=== PATIENT | male | born 1965 | race Two or more races ===

== ENCOUNTER → 2016-09-16 | Day surgery (SDC) | payer MEDICAID ==
[2016-06-29 13:31] VITALS: BMI 23.2
[~2016-09-16] MED LIST: BUPIVACAINE 0.25% 30 ML VIAL ONE; CEFAZOLIN 1 GM VIAL ONE; FENTANYL 100 MCG/2 ML VIAL IV ONE; FENTANYL 100 MCG/2 ML VIAL IV PRN; GLYCOPYRROLATE 1 MG VIAL IM ONE; HYDROmorphone 1 MG INJECTION IV PRN; ISOVUE-300 (61%) 50 ML ONE; KETAMINE 50 MG/ML SYRINGE IV ONE; KETOROLAC TROMETH 30 MG/ML VIAL IM ONE; LABETALOL 20 MG/4 ML SYRINGE IV PRN; LIDOCAINE 100 MG PFS IV ONE; MEPERIDINE 25 MG/ML TUBEX IV PRN; MIDAZOLAM 2 MG/2 ML VIAL IV ONE; NEOSTIGMINE 1 MG/1 ML (1:1000) INJ 10 ML MDV IM ONE; ONDANSETRON HCL 4 MG ODT TAB PO PRN; ONDANSETRON HCL 4 MG/2 ML VIAL IV ONE; ONDANSETRON HCL 4 MG/2 ML VIAL IV PRN; OXYCODONE HCL 5 MG TABLET ONE; PROPOFOL 200 MG/20 ML VIAL IV ONE; ROCURONIUM 50 MG/5 ML VIAL IV ONE; hydrALAZINE 20 MG/ML VIAL IV PRN
--- NOTE | 2016-09-16 07:10 | HIM.ANES ---
Anesthesia Evaluation & Plan Diagnoses: CHRONIC CHOLECYSTITIS (09/16/16) NAUSEA (09/16/16) Consented Procedure: LAPAROSCOPIC CHOLECYSTECTOMY WITH INTRAOPERATIVE CHOLANGIOGRAM - Focused Review of Systems Cardiac History: No: Hx Hypertension, Hx Cardiac Disorders HEENT: Yes: Hx Hearing Impairment (HARD OF HEARING LEFT), Cataracts, Hx Vision Problem (RIGHT EYE), Other HEENT Problems Hx Other HEENT Problems: SINUS, ALLERGIES Respiratory: Yes: Hx Asthma (CHILDHOOD), Hx Chronic Obstructive Pulmonary Disease (COPD) (chronic bronchitis) Gastrointestinal: Yes: Hx Gastroesophageal Reflux Disease (sometimes), Hx Diverticulitis, Hx Diverticulosis Neurological/Musculoskeletal: No: HX Cerebrovascular Accident, Hx Neurological Disorders Psychological: No Hx Mental/Emotional Disorders Blood/Autoimmune: No: Hx Blood Transfusions, Hx AIDS, Hx Hepatitis (type) Smoking Status: Never smoker Other Surgical History: CIRCUMCISION - Focused Physical Exam NPO since: 09/15/162099 Mallampati: Class I Thyromental Distance: Greater than 3 Neck: Full Range of Motion Dental: Normal - no significant findings Cardiovascular/Chest: Normal Respiratory: Lungs clear Any problems with anesthesia, including nausea and vomiting?: No Any relatives with a history of Malignant Hyperthermia?: No Does patient have a history of Malignant Hyperthermia?: No Beta Iris given (if appropriate): N/A Does the patient have a history of Motion Sickness-: No Other: Allergies Allergy/AdvReac Type Severity Reaction Status Date / Time peanuts Allergy See Uncoded 09/16/16 06:41 Comments Home Medications Medication Instructions Recorded Last Taken Type Loratadine [Claritin] 10 mg PO DAILY 06/28/16 09/15/16 History Prednisone 5 mg PO DAILY 06/28/16 09/15/16 History Albuterol Sulfate [Proair Hfa] 2 puff INH Q4H PRN 09/16/16 09/16/16 04:00 History Folic Acid 1 mg PO DAILY 09/16/16 09/14/16 History Methotrexate Sodium [Methotrexate] 6 tab PO .QWEDNESDAY 09/16/16 09/14/16 History Height and Weight Patient's height 5 ft 3 in Patient's weight 63.503 kg BMI 23.2 Vital Signs Temperature 98.3 F 09/16/16 06:46 Pulse Rate 76 09/16/16 06:46 Respiratory Rate 18 09/16/16 06:46 Blood Pressure 117/84 09/16/16 06:46 Pulse Oxygen Saturation 96 09/16/16 06:46 METS - Level of Activity: Climbing stairs(1 flight),walking level ground, running short distance - Anesthetic Plan Anesthesia Type: General ASA Class: 2 -: I have examined this patient and reviewed the medical record. The patient has been assessed prior to anesthesia. Risks and benefits of anesthesia and anesthetic technique options have been discussed and all questions answered. The patient accepts the risk and desires me to proceed with the planned anesthetic.
--- NOTE | 2016-09-16 10:22 | HIMOPRPT ---
PROCEDURE: DATE OF PROCEDURE: 09/16/16 PREOPERATIVE DIAGNOSES: Cholecystitis and cholelithiasis. POSTOPERATIVE DIAGNOSES: Cholecystitis and cholelithiasis. PROCEDURE: Laparoscopic cholecystectomy with intraoperative cholangiogram. SURGEON: Valdemar Frost MD AUTO BODY TECHNICIAN: Derick Estes MD ANESTHESIA: General. COMPLICATIONS: None. ESTIMATED BLOOD LOSS: <20cc OPERATIVE NOTE: The patient was placed supine on the operative table. After induction of general anesthesia and endotracheal intubation, the patient was prepped and draped in the usual fashion. Time-out was taken. The patient was re- identified and the procedure was verified, and was given pre-operative antibiotics. An infraumbilical incision was made and a 5-mm Optiview trocar was placed without difficulties. The abdomen was insufflated with CO2 until a pressure of 15 mm HG was achieved. The camera was introduced and we inspected the abdominal cavity. The liver was smooth without any nodularities or masses. At this point, we placed two 5 mm ports in the right upper quadrant under direct visualization and an 11-mm port in the epigastric region. Numerous adhesions were encountered and we took these down with the Harmonic Scalpel. We were able to place a grasper on the dome, the other on the infundibulum of the gallbladder. The [place] of [place] was dissected using lateral retraction of the infundibulum thus exposing this critical angle between the cystic duct and CBD. The peritoneal attachment around the infundibulum of the gallbladder to the liver was dissected free using electrocautery and the Harmonic scalpel. Thus giving a partial retrograde dissection. This allowed the visualization of the cystic duct and artery as they entered the gallbladder. Having developed this Critical View of Safety at the triangle of [place] we proceeded with our cholangiogram. A Hebert clamp was placed across the body of the gallbladder, the tip of the catheter was inserted into the infundibulum. We then were able to flush this. Using the C-arm fluoroscopy unit, we performed a cholangiogram. We could not get the contrast to go into the biliary tree. We then use a Taut catheter and made a small ductotomy in the cystic duct. The catheter was inserted and clipped in place. In real time, we saw the passage of contrast throughout the biliary tree, common hepatic, common bile duct, and emptying readily into the duodenum. No filling defects were noted. This was a normal cholangiogram. At this point, the catheter was removed. Clips were placed on the cystic duct and artery and these structures were divided. A PDS loop was placed around the cystic duct stump. We then removed the gallbladder off the liver bed using electrocautery. The liver bed remained completely hemostatic. We removed the gallbladder and placed it into a laparoscopic retrieval bag. We irrigated the operative field and suctioned out the irrigation. We then removed the ports allowing the CO2 to escape. The patient then had the large port site closed at the level of the fascia using #0-Vicryl sutures. The wounds were all irrigated and infiltrated with 0.25% Marcaine. The skin edges were approximated using 4-0 Monocryl and Dermabond. The patient tolerated this well. Sponge, needle, and instrument counts were correct.
[2016-09-16 10:28] VITALS: TEMP 97
--- NOTE | 2016-09-16 11:09 | DIRPT ---
CLINICAL DATA: Chronic cholecystitis. Laparoscopic cholecystectomy. EXAM: INTRAOPERATIVE CHOLANGIOGRAM FLUOROSCOPY TIME: 1 minute, 16 seconds (11.2 mGy). COMPARISON: Abdominal ultrasound - 08/31/2016; CT abdomen and pelvis - 07/01/2016 FINDINGS: Intraoperative cholangiographic images of the right upper abdominal quadrant during laparoscopic cholecystectomy are provided for review. Surgical clips overlie the expected location of the gallbladder fossa. Contrast injection demonstrates selective cannulation of the central aspect of the cystic duct. There is passage of contrast through the central aspect of the cystic duct with filling of a non dilated common bile duct. There is passage of contrast though the CBD and into the descending portion of the duodenum. There is minimal reflux of injected contrast into the common hepatic duct and central aspect of the non dilated intrahepatic biliary system. There is minimal opacification of the central aspect of the pancreatic duct which appears nondilated. There is minimal extravasation about the gallbladder fossa. There are no discrete filling defects within the opacified portions of the biliary system to suggest the presence of choledocholithiasis. IMPRESSION: No evidence of choledocholithiasis. Electronically Signed By: Navarro Rosado M.D. On: 09/16/2016 11:06
[2016-09-16 12:55] VITALS: PULSE 68
[2016-09-16 13:54] VITALS: BP 144/87
--- NOTE | 2016-09-16 13:54 | SC.ANESPOS ---
Post-Anesthesia Note LOC: Fully Awake Post-Anesthesia Assessment: Awake, Returned to Baseline, Hemodynamically Stable , Pain Control Adequate Phase I & II Recovery Complete: Yes Apparent Anesthesia Complication: No : N PACU Discharge Time: 10:30 - Vital Signs Blood Pressure: 144/87 Pulse: 68 Resp Rate: 16 O2 Sat: 97 Temp: 97 F - Comments Anesthesia Discharge Time Report Time 10:30
== END ==
LOC: SDC 05:59
PROVIDERS: ATTEND Surgery
PROC: 0FT44ZZ Resection of Gallbladder, Percutaneous Endoscopic Approach (ICD-10-PCS; principal; 2016-09-16 07:15)
DX: K80.10 Calculus of gallbladder with chronic cholecystitis without obstruction (principal); J45.909 Unspecified asthma, uncomplicated; K21.9 Gastro-esophageal reflux disease without esophagitis; M06.9 Rheumatoid arthritis, unspecified; Z79.899 Other long term (current) drug therapy
CPT/HCPCS: 47563; 74300; J0690; J1885; J2001; J2250; J2405; J2710; J3010; J3490; S0020